=== PATIENT | female | born 1945 | race Two or more races ===

== ENCOUNTER 2018-05-31 08:19 | Emergency (ER) | payer OTHER ==
[~2018-05-31] VITALS: Ht 157.5 cm; Wt 45.8 kg
[~2018-05-31 08:19] MED LIST: ATIVAN1 M1; DEPAKOTE ER250 MG; LISINOPRIL20 MG
[2018-05-31] MEDS ORDERED: METFORMIN HCL500 MG (08:33)
[2018-05-31] MEDS ORDERED: TOBRADEX EYE DR10 ML OP (09:26)
== END 2018-05-31 11:08 | disposition home or self-care (01) ==
LOC: ER 08:19
DX: H10.89 Other conjunctivitis (principal)

== ENCOUNTER 2018-06-06 16:05 | Outpatient (CLI) | payer OTHER ==
[~2018-06-06 16:05] MED LIST changes: +METFORMIN HCL500 MG; +TOBRADEX EYE DR10 ML OP
== END 2018-06-06 16:40 | disposition home or self-care (01) ==
LOC: RAD 16:05
DX: J44.9 Chronic obstructive pulmonary disease, unspecified (principal)